=== PATIENT | male | born 1975 | race African-American/Black ===

== ENCOUNTER 2021-06-05 08:07 | Emergency (ER) | payer OTHER ==
[2021-06-05 08:40] VITALS: BP 159/95; PULSE 84; TEMP 98.4; BMI 43.8
== END 2021-06-05 08:50 | disposition home or self-care (01) ==
LOC: JER 08:07
DX: S16.1XXA Strain of muscle, fascia and tendon at neck level, initial encounter (principal); S39.012A Strain of muscle, fascia and tendon of lower back, initial encounter; V89.2XXA Person injured in unspecified motor-vehicle accident, traffic, initial encounter; Y92.9 Unspecified place or not applicable
CPT/HCPCS: 99283-25

== ENCOUNTER 2021-11-17 14:10 | Observation (INO) | payer OTHER ==
[2021-11-17 14:59] VITALS: BMI 37.5
[2021-11-17] MEDS ORDERED: ACETAMINOPHEN 500 MG TABLET (FP) PO ONE (15:31)
[2021-11-17] MEDS ORDERED: ACETAMINOPHEN 325 MG TABLET (FP) ONE (15:40)
[2021-11-17 15:55] LABS: BASO % 1.1 % (0-2.0); EOS % 1.2 % (0-4.5); HEMATOCRIT 47.8 % (35.4-49); HEMOGLOBIN 16.2 GM/dL (11.7-16.9); LYMPH % 26.4 % (8-40); MCH 29.3 pg (25.7-33.7); MCHC 33.9 g/dl (32.0-35.9); MEAN CELL VOLUME 86.6 fl (80-96); MEAN PLT VOLUME 8.6 fl (7.5-11.1); MONO % 12.9 % (3.8-10.2); NEUT % 58.4 % (42.8-82.8); PLATELET COUNT 242 10^3/uL (134-434); RBC 5.52 M/mm3 (4.00-5.60); RDW 13.6 % (11.9-15.9); WHITE BLOOD COUNT 6.2 K/mm3 (4.0-10.0)
[2021-11-17 16:06] LABS: ACTIVATED PTT 28.6 SECONDS (25.2-36.5); INR 1.19 (0.83-1.09); PROTHROMBIN TIME (PATIENT) 13.7 SEC (9.7-13.0)
[2021-11-17 16:14] LABS: CHLORIDE 104 mmol/L (98-107); SODIUM 123 mmol/L (136-145)
[2021-11-17 16:17] LABS: ALBUMIN 4.2 g/dl (3.4-5.0); BLOOD UREA NITROGEN 12.4 mg/dL (7-18); CALCIUM 9.3 mg/dL (8.5-10.1); CO2 23 mmol/L (21-32); GLUCOSE,RANDOM 80 mg/dL (74-106)
[2021-11-17] MEDS ORDERED: SODIUM CHLORIDE 0.9% 500 ML INFUS.BAG IV ONE (16:21)
[2021-11-17 16:22] LABS: TOT PROT 9.4 g/dl (6.4-8.2)
[2021-11-17 16:23] LABS: ALK PHOS 111 U/L (45-117)
[2021-11-17 16:25] LABS: N-TERMINAL BNP 15.9 pg/ml (5-125)
[2021-11-17 17:19] LABS: ANION GAP -5 MMOL/L (8-16)
[2021-11-17] MEDS ORDERED: ONDANSETRON 4 MG/2 ML VIAL IVPUSH ONE (17:53)
[2021-11-17] MEDS ORDERED: ONDANSETRON 4 MG/2 ML VIAL ONE (17:55)
[2021-11-17 18:44] LABS: CALCIUM 9.1 mg/dL (8.5-10.1)
[2021-11-17 18:45] LABS: BLOOD UREA NITROGEN 11.1 mg/dL (7-18)
[2021-11-17] MEDS ORDERED: POTASSIUM CHLORIDE TABS 20 MEQ TABLET.ER (FP) PO ONE (18:47)
[2021-11-17 18:48] LABS: CREATININE 0.8 mg/dL (0.55-1.3)
[2021-11-17] MEDS ORDERED: POTASSIUM CHLORIDE ORAL LIQUID 20 MEQ/15 ML ONE (21:25)
[2021-11-17 21:59] LABS: MAGNESIUM 2.3 mg/dL (1.8-2.4)
[2021-11-17] MEDS: ENOXAPARIN NA (PORCINE) 40 MG/0.4 ML DISP.SYRIN SQ SCH (22:38)
[2021-11-17] MEDS ORDERED: ENOXAPARIN NA (PORCINE) 40 MG/0.4 ML DISP.SYRIN SQ ONE (23:30)
[2021-11-17] MEDS ORDERED: POTASSIUM CHLORIDE ORAL LIQUID 20 MEQ/15 ML PO ONE (23:53)
[2021-11-18] MEDS ORDERED: POTASSIUM CHLORIDE ORAL LIQUID 20 MEQ/15 ML ONE (00:39)
[2021-11-18] MEDS ORDERED: GABAPENTIN 100 MG CAPSULE PO ONE (01:37)
[2021-11-18 02:25] LABS: PH,URINE 5.5 (5.0-8.0); URINE APPEARANCE CLEAR; URINE BILIRUBIN NEGATIVE (NEGATIVE); URINE COLOR DK YELLOW; URINE GLUCOSE (UA) NEGATIVE (NEGATIVE); URINE KETONE 3+ (NEGATIVE); URINE LEUK ESTERASE NEGATIVE (NEGATIVE); URINE NITRITE NEGATIVE (NEGATIVE); URINE PROTEIN TRACE (NEGATIVE); URINE UROBILINOGEN 4.0 E.U/dl mg/dL (0.2-1.0)
[2021-11-18] MEDS ORDERED: GABAPENTIN 100 MG CAPSULE ONE (03:16)
[2021-11-18 08:02] LABS: BASO % 0.9 % (0-2.0); EOS % 1.3 % (0-4.5); HEMOGLOBIN 14.7 GM/dL (11.7-16.9); LYMPH % 23.6 % (8-40); MCH 28.7 pg (25.7-33.7); MCHC 32.7 g/dl (32.0-35.9); MEAN PLT VOLUME 8.4 fl (7.5-11.1); MONO % 10.3 % (3.8-10.2); NEUT % 63.9 % (42.8-82.8); PLATELET COUNT 212 10^3/uL (134-434); RBC 5.11 M/mm3 (4.00-5.60); RDW 13.5 % (11.9-15.9); WHITE BLOOD COUNT 6.3 K/mm3 (4.0-10.0)
[2021-11-18 08:11] LABS: CHLORIDE 111 mmol/L (98-107); SODIUM 140 mmol/L (136-145)
[2021-11-18 08:16] LABS: ALBUMIN 4.2 g/dl (3.4-5.0); ANION GAP 8 MMOL/L (8-16); BLOOD UREA NITROGEN 9.1 mg/dL (7-18); CO2 22 mmol/L (21-32); GLUCOSE,RANDOM 92 mg/dL (74-106); MAGNESIUM 2.6 mg/dL (1.8-2.4)
[2021-11-18 08:18] LABS: PHOSPHOROUS 3.9 mg/dL (2.5-4.9); SGPT/ALT 58 U/L (13-61)
[2021-11-18 08:19] LABS: CHOLESTEROL 119 mg/dL (50-200); CREATININE 0.8 mg/dL (0.55-1.3); SGOT/AST 23 U/L (15-37); TRIGLYCERIDES 98 mg/dL (0-150)
[2021-11-18 08:20] LABS: LDL CHOLESTEROL (ONLY SJRH) 71 mg/dL (5-100)
[2021-11-18 08:21] LABS: ALK PHOS 99 U/L (45-117); HDL CHOLESTEROL 26 mg/dL (40-60)
[2021-11-18 08:23] LABS: TOT PROT 6.9 g/dl (6.4-8.2)
[2021-11-18] MEDS ORDERED: CARVEDILOL 12.5 MG TABLET (FP) ONE (08:30)
[2021-11-18] MEDS ORDERED: ENOXAPARIN NA (PORCINE) 40 MG/0.4 ML DISP.SYRIN SQ ONE (08:30)
[2021-11-18] MEDS ORDERED: amLODIPine BESYLATE 2.5 MG TABLET (FP) ONE (08:30)
[2021-11-18] MEDS ORDERED: LOSARTAN POTASSIUM 50 MG TABLET ONE (08:30)
[2021-11-18] MEDS ORDERED: CLOPIDOGREL BISULFATE 75 MG TABLET (FP) ONE (08:30)
[2021-11-18] MEDS ORDERED: PANTOPRAZOLE 40 MG TABLET ONE (09:29)
[2021-11-18] MEDS ORDERED: ACETAMINOPHEN INJECTION 100 ML IVPB ONE (09:38)
[2021-11-18] MEDS ORDERED: ACETAMINOPHEN 1000 MG/100 ML BAG IVPB ONE (09:38)
[2021-11-18] MEDS: ENOXAPARIN NA (PORCINE) 40 MG/0.4 ML DISP.SYRIN SQ SCH (09:43)
[2021-11-18] MEDS: CARVEDILOL 12.5 MG TABLET (FP) PO SCH ×2 (09:44→22:22)
[2021-11-18] MEDS: PANTOPRAZOLE 40 MG TABLET PO SCH (09:44)
[2021-11-18] MEDS: CLOPIDOGREL BISULFATE 75 MG TABLET (FP) PO SCH (09:44)
[2021-11-18] MEDS: LOSARTAN POTASSIUM 50 MG TABLET PO SCH (09:44)
[2021-11-18] MEDS: amLODIPine BESYLATE 2.5 MG TABLET (FP) PO SCH (09:44)
[2021-11-18] MEDS ORDERED: ALPRAZolam 1 MG TABLET PO ONE (17:07)
[2021-11-18] MEDS ORDERED: DEXAMETHASONE 4 MG TABLET (FP) PO SCH (17:15)
[2021-11-18] MEDS ORDERED: CYCLOBENZAPRINE HCL 5 MG TABLET PO SCH (17:15)
[2021-11-18] MEDS ORDERED: LORazepam 2 MG/ML SDV VIAL IVPUSH ONE (17:20)
[2021-11-18] MEDS ORDERED: CYCLOBENZAPRINE HCL 10 MG TABLET (FP) ONE (20:53)
[2021-11-18] MEDS: CYCLOBENZAPRINE HCL 5 MG TABLET PO SCH ×2 (21:05→22:23)
[2021-11-18] MEDS: ATORVASTATIN CA 10 MG TABLET (FP) PO SCH (22:22)
[2021-11-18] MEDS: GABAPENTIN 300 MG CAPSULE PO SCH (22:22)
[2021-11-19] MEDS: CYCLOBENZAPRINE HCL 5 MG TABLET PO SCH ×3 (06:17→21:13)
[2021-11-19] MEDS: CLOPIDOGREL BISULFATE 75 MG TABLET (FP) PO SCH (09:47)
[2021-11-19] MEDS: PANTOPRAZOLE 40 MG TABLET PO SCH (09:47)
[2021-11-19] MEDS: CARVEDILOL 12.5 MG TABLET (FP) PO SCH ×2 (09:47→21:13)
[2021-11-19] MEDS: amLODIPine BESYLATE 2.5 MG TABLET (FP) PO SCH (09:47)
[2021-11-19] MEDS: ENOXAPARIN NA (PORCINE) 40 MG/0.4 ML DISP.SYRIN SQ SCH (09:47)
[2021-11-19] MEDS: LOSARTAN POTASSIUM 50 MG TABLET PO SCH (09:47)
[2021-11-19 09:55] LABS: BASO % 0.9 % (0-2.0); EOS % 1.7 % (0-4.5); HEMATOCRIT 43.5 % (35.4-49); HEMOGLOBIN 14.5 GM/dL (11.7-16.9); LYMPH % 29.5 % (8-40); MCH 29.1 pg (25.7-33.7); MCHC 33.4 g/dl (32.0-35.9); MEAN PLT VOLUME 8.5 fl (7.5-11.1); MONO % 7.7 % (3.8-10.2); NEUT % 60.2 % (42.8-82.8); PLATELET COUNT 212 10^3/uL (134-434); RDW 12.9 % (11.9-15.9); WHITE BLOOD COUNT 5.2 K/mm3 (4.0-10.0)
[2021-11-19] MEDS: GABAPENTIN 300 MG CAPSULE PO SCH (21:13)
[2021-11-19] MEDS: ATORVASTATIN CA 10 MG TABLET (FP) PO SCH (21:13)
[2021-11-20] MEDS: CYCLOBENZAPRINE HCL 5 MG TABLET PO SCH (05:25)
[2021-11-20 08:04] LABS: BLOOD UREA NITROGEN 10.3 mg/dL (7-18)
[2021-11-20 08:08] LABS: CREATININE 0.9 mg/dL (0.55-1.3)
[2021-11-20] MEDS: amLODIPine BESYLATE 2.5 MG TABLET (FP) PO SCH (09:54)
[2021-11-20] MEDS: LOSARTAN POTASSIUM 50 MG TABLET PO SCH (09:54)
[2021-11-20] MEDS: ENOXAPARIN NA (PORCINE) 40 MG/0.4 ML DISP.SYRIN SQ SCH (09:54)
[2021-11-20] MEDS: CLOPIDOGREL BISULFATE 75 MG TABLET (FP) PO SCH (09:54)
[2021-11-20] MEDS: CARVEDILOL 12.5 MG TABLET (FP) PO SCH (09:54)
[2021-11-20] MEDS: PANTOPRAZOLE 40 MG TABLET PO SCH (09:54)
[2021-11-20] MEDS ORDERED: ARIPiprazole 2 MG TABLET PO SCH (10:00)
[2021-11-20 10:26] VITALS: BP 150/90; PULSE 76; TEMP 98
== END 2021-11-20 11:17 | disposition home or self-care (01) ==
LOC: JER 14:10 → INTOOBSV 20:57 → JERBED 20:57 → J4W 11-18 21:19
PROVIDERS: ADMIT Internal Medicine
PROC: 3E033NZ Introduction of Analgesics, Hypnotics, Sedatives into Peripheral Vein, Percutaneous Approach (ICD-10-PCS; principal; 2021-11-17)
PROC: 3E023GC Introduction of Other Therapeutic Substance into Muscle, Percutaneous Approach (ICD-10-PCS; 2021-11-17)
PROC: 3E033NZ Introduction of Analgesics, Hypnotics, Sedatives into Peripheral Vein, Percutaneous Approach (ICD-10-PCS; 2021-11-17)
PROC: 3E0337Z Introduction of Electrolytic and Water Balance Substance into Peripheral Vein, Percutaneous Approach (ICD-10-PCS; 2021-11-17)
DX: I25.10 Atherosclerotic heart disease of native coronary artery without angina pectoris (principal); I11.9 Hypertensive heart disease without heart failure; F41.9 Anxiety disorder, unspecified; M54.9 Dorsalgia, unspecified; E66.9 Obesity, unspecified; Z68.37 Body mass index [BMI] 37.0-37.9, adult; M54.2 Cervicalgia; R07.9 Chest pain, unspecified; E78.5 Hyperlipidemia, unspecified; Z29.9 Encounter for prophylactic measures, unspecified; I25.2 Old myocardial infarction; R05.9 Cough, unspecified; F17.210 Nicotine dependence, cigarettes, uncomplicated; M43.07 Spondylolysis, lumbosacral region; M54.16 Radiculopathy, lumbar region; V89.2XXA Person injured in unspecified motor-vehicle accident, traffic, initial encounter; Y93.9 Activity, unspecified
CPT/HCPCS: 36415; 71045-TC-FY; 72128-TC; 72131-TC; 72156-TC; 72158-TC; 80048; 80053; 80061; 81003; 82436; 82550; 82553; 83036; 83735; 83880; 84100; 84133; 84300; 84443; 84484; 85025; 85610; 85730; 86850; 86900; 86901; 87086; 93005; 93010; 93306-TC; 97116-GP; 97161-GP; 99291; C1887; C9803; G0378; U0003; U0005

== ENCOUNTER 2022-08-24 12:49 | Emergency (ER) | payer OTHER ==
[2022-08-24 13:33] VITALS: BP 137/63; PULSE 60; RESP 18; TEMP 98; BMI 36.0
[2022-08-24 15:00] LABS: BASO % 0.9 % (0-2.0); EOS % 1.2 % (0-4.5); HEMATOCRIT 47.2 % (35.4-49); HEMOGLOBIN 15.7 GM/dL (11.7-16.9); LYMPH % 25.7 % (8-40); MCH 28.9 pg (25.7-33.7); MCHC 33.2 g/dl (32.0-35.9); MEAN CELL VOLUME 87.1 fl (80-96); MEAN PLT VOLUME 8.4 fl (7.5-11.1); MONO % 10.5 % (3.8-10.2); NEUT % 61.7 % (42.8-82.8); PLATELET COUNT 215 10^3/uL (134-434); RBC 5.42 M/mm3 (4.00-5.60); RDW 12.9 % (11.9-15.9); WHITE BLOOD COUNT 6.7 K/mm3 (4.0-10.0)
[2022-08-24 15:20] LABS: CALCIUM 9.4 mg/dL (8.5-10.1)
[2022-08-24 15:21] LABS: ALBUMIN 4.4 g/dl (3.4-5.0); BLOOD UREA NITROGEN 10.6 mg/dL (7-18)
[2022-08-24 15:24] LABS: CREATININE 0.9 mg/dL (0.55-1.3)
[2022-08-24 15:25] LABS: BILIRUBIN,TOTAL 0.7 mg/dL (0.2-1); TOT PROT 7.4 g/dl (6.4-8.2)
== END 2022-08-24 16:14 | disposition home or self-care (01) ==
LOC: JERFT 12:49
DX: R44.0 Auditory hallucinations (principal)
CPT/HCPCS: 36415; 80053; 84443; 85025; 99283-25